=== PATIENT | male | born 1950 | race Caucasian/White ===

== ENCOUNTER → 2021-03-25 | Outpatient (CLI) | payer OTHER, MEDICARE ==
[~2021-03-25] MED LIST: FISH OIL 1,001000 M2 PO; TUMS PO; ZOCOR 10 MG TAB10 MG PO
== END ==
LOC: SJCVC 13:46
PROVIDERS: ATTEND Internal Medicine
DX: R07.89 Other chest pain (principal); I10 Essential (primary) hypertension; Z13.220 Encounter for screening for lipoid disorders; E78.5 Hyperlipidemia, unspecified; Z87.891 Personal history of nicotine dependence; Z72.89 Other problems related to lifestyle; Z79.899 Other long term (current) drug therapy

== ENCOUNTER → 2021-04-08 | Outpatient (CLI) | payer OTHER, MEDICARE ==
[~2021-04-08] MED LIST changes: +ADULT LOW DOSE81 MG PO; +FERREX 150 PLU1 EAC1 PO; +LIPITOR40 MG PO; +PACERONE 200 M200 M1 PO; +TOPROL XL25 MG PO; +VITAMIN B-12500 MC5 BUCCAL
== END ==
LOC: SJCVCIMAG 07:17
PROVIDERS: ATTEND Internal Medicine
DX: I25.9 Chronic ischemic heart disease, unspecified (principal); R94.39 Abnormal result of other cardiovascular function study; Z01.812 Encounter for preprocedural laboratory examination; E78.5 Hyperlipidemia, unspecified; I10 Essential (primary) hypertension; Z87.891 Personal history of nicotine dependence; Z72.89 Other problems related to lifestyle; Z79.82 Long term (current) use of aspirin; Z79.899 Other long term (current) drug therapy

== ENCOUNTER 2021-04-11 06:30 | Inpatient (IN) | payer OTHER, MEDICARE ==
[~2021-04-11] VITALS: Ht 177.8 cm; Wt 76.8 kg
[2021-04-11] VITALS (13 sets, daily range): BP systolic 107–155; BP diastolic 62–85
[~2021-04-11 06:30] MED LIST changes: -ADULT LOW DOSE81 MG PO; -FERREX 150 PLU1 EAC1 PO; -LIPITOR40 MG PO; -PACERONE 200 M200 M1 PO; -TOPROL XL25 MG PO; -VITAMIN B-12500 MC5 BUCCAL
[2021-04-11] MEDS ORDERED: TOPROL XL25 MG PO (07:59)
--- NOTE | 2021-04-11 18:27 | NUR ---
PT ADMITED FROM ACCOUNTING MANAGER ASSISTANT CONTROLLER. ADMISSION HX AND ASSESSMENT COMPLETED. VSS. DENIED HAVING PAIN OR DISCOMFORT. RIGHT GROIN INCISION C/D/I. NO HEMATOMA NOTED. NEW ORDERS NOTED. NO CONCERNS AT THIS TIME.
--- NOTE | 2021-04-11 21:49 | NUR ---
ASSUMED PT CARE AT 1900, ALERT AND ORIENTEDX4, DENIES PAIN, DIZZINESS OR SOB, TAKEN FOR CHEST XRAY VIA W/C, ASSESSMENTS CHARTED, VSS, SR ON TELE, MEDS GIVEN PER Antonia WILLISGROIN SITE CDI, NO HEMATOMA, NO NEEDS AT THIS TIME, WILL CONTINUE TO MONITOR PER POC
--- NOTE | 2021-04-11 23:22 | CATHLAB ---
[place] [address] INVASIVE PROCEDURE REPORT Name: VICTOR HUGO FRANCIS Room #: 211-P ADM IN M.R.#: [id number] Admission: 04/11/21 Attend Phys: Montana Kim MD, Discharge: Date of : 54 Report #: [id number] THIS REPORT FOR: cc: Shirley Mckenna MD, Cora A. MD Mancuso, Gerald M. MD [facility] ~ APPROVED REPORT Study performed: 04/11/2021 08:18:08 Patient Details Patient Status: Out-Patient Room #: The patient is a 71 year-old male Event Personnel Montana Kim Mortgage Protection Specialist, Jcarlos Bullard RN RN, Sharee Montiel RTR Scrub, Jarvis Garduno Monitor Procedures Performed Art Access - R femoral artery* Left Heart Cath w/or w/o Coronaries 6675352 [facility] Abdominal Aortography 401870 Hemostasis w/ Mynx Indication Chest pain Procedure Narrative The Right Groin^ was infiltrated with 1% Lidocaine subcutaneous anesthesia. A PINNACLE 6FR Sheath #[id number] sheath was inserted into the RFA^. Coronary angiography was performed using coronary diagnostic catheters. The right coronary system was accessed and visualized with a JR4 catheter. The left coronary system was accessed and visualized with a JL4 catheter. The left ventricle was accessed and visualized with a PIGTAIL catheter. The patient tolerated the procedure well and there were no complications associated with the procedure. Intraoperative Conscious Sedation Fentanyl mcg Versed mg Fluoro Time: 1.24 minutes Dose: DAP 2304.80 cGycm2 Contrast Type and Amount: Omnipaque 90 ml [address] [email or web address] [address] INVASIVE PROCEDURE REPORT Name: VICTOR HUGO FRANCIS Room #: 211-P [facility] IN [facility].#: [id number] Admission: 04/11/21 Attend Phys: Montana Kim, Discharge: Date of : 54 Report #: [id number] Hemodynamics The aortic pressure is 136/47 mmHg with a mean of 43 mmHg. The left ventricular pressure is 143/0 mmHg with a mean of mmHg. The left ventricular end diastolic pressure is 22 mmHg. Conclusion #1 Normal left ventricular size subtle anterior apical wall leg EF 50% range. #2 abdominal aortogram shows mild irregularity small infrarenal distal aortic aneurysm will evaluate noninvasively. Brisk flow into the iliac system. #3 distal left main high-grade disease extends into a subtotaled LAD system and also ostial circumflex trifurcation disease severe. #4 the LAD is subtotally occluded off of the left main fairly well-preserved distal vessel to the apex. #5 there is a ramus branch that also comes off of the trifurcation which appears to be involved with high-grade ostial disease. #6 small nondominant circumflex with high-grade ostial disease. #7 dominant right coronary with an eccentric mid vessel lesion of 50 to 60% small but preserved PDA system. Recommendations and plan: Continue aggressive risk factor modification. Patient is admitted due to a high-grade distal left main trifurcation disease. CV surgical consultation. He is pain-free without EKG changes. Transfer to CCU. <ELECTRONICALLY SIGNED> By: Montana Kim MD, FACC 04/11/212321 21 21 Montana Kim MD, FACC /INF
[2021-04-12 04:29] VITALS: BP 137/60
[2021-04-12 04:38] LABS: HEMATOCRIT 42.9 % (42.0-52.0); HEMOGLOBIN 14.3 gm/dL (14.0-18.0); MCH 31.1 pg (26.0-34.0); MCHC 33.4 g/dL (28.0-37.0); MCV 93.1 fL (80.0-100.0); RBC 4.61 mil/uL (4.50-6.00); RDW 12.9 % (10.5-14.5)
[2021-04-12 05:09] LABS: CALCIUM 8.5 mg/dL (8.5-10.1); CREATININE 1.1 mg/dL (0.7-1.3); POTASSIUM 4.4 mmol/L (3.5-5.1)
[2021-04-12 08:30] VITALS: BP 133/92
[2021-04-12 12:30] VITALS: BP 98/65
[2021-04-12 17:00] VITALS: BP 136/84
[2021-04-12 19:50] VITALS: BP 114/55
--- NOTE | 2021-04-13 05:07 | NUR ---
ALERT AND ORIENTED, VERY PLEASANT DENIES CP OR SOA, SR/SA WITH PACS NOTED ON TELE, ASSESSMENTS CHARTED, DENIES NEEDS THIS SHIFT, PLAN FOR CABG ON WEDNESDAY, WILL CONTINUE TO MONITOR PT PER POC
[2021-04-13 05:55] VITALS: BP 137/69
[2021-04-13 07:08] LABS: GLYCOHEMOGLOBIN (HGB A1C) 5.4 % (4.8-5.6)
[2021-04-13 07:10] VITALS: BP 123/72
[2021-04-13 11:05] VITALS: BP 136/68
--- NOTE | 2021-04-13 11:46 | NUR ---
TOOK OVER CARE FOR THIS PATIENT AT 0700. PATIENT RESTING IN BED DURING BEDSIDE SHIFT REPORT. CAME TO SEE PATIENT THIS MORNING; PLAN FOR CABG ON WEDNESDAY. CONSENT SIGNED. PATIENT DENIES ANY NEEDS AT THIS TIME. PATIENT PLEASANT AND USES CALL LIGHT APPROPRIATLEY. PATIENT WILL BE NPO AT MIDNIGHT FOR PROCEDURE. FALL PRECAUTIONS IN PLACE, PERSONAL BELONGINGS WITHIN REACH AND CALLL LIGHT WITHIN REACH. WILL CONTINUE TO MONITOR.
[2021-04-13 15:15] VITALS: BP 121/78
[2021-04-13 20:15] VITALS: BP 150/88
--- NOTE | 2021-04-14 02:41 | NUR ---
ASSUMED PT CARE AT 1900, ALERT AND ORIENTEDX4, VERY PLEASANT, SINUS ON TELE, DENIES CHEST PAIN OR SOA, SHOWERED AT HS WITH COMPLETE BED CHANGE, 2ND IV STARTED 20 GAUGE TO THE L. WRIST, VSS, CONSENT FOR BLOOD OBTAINED, PLAN FOR CABG IN THE AM, NPO FOR THE PROCEDURE, WILL CONTINUE TO MONITOR
[2021-04-14 04:45] VITALS: BP 142/75
[2021-04-14 04:50] VITALS: BP 138/78
[2021-04-14 12:59] LABS: HEMATOCRIT 27.8 % (42.0-52.0); MCH 31.7 pg (26.0-34.0); MCHC 34.3 g/dL (28.0-37.0); MCV 92.5 fL (80.0-100.0); RBC 3.01 mil/uL (4.50-6.00); WBC 16.2 thou/uL (4.0-11.0)
[2021-04-14 13:02] LABS: HEMOGLOBIN 9.6 gm/dL (14.0-18.0)
[2021-04-14 13:15] LABS: APTT 30.5 Seconds (24.5-32.8); PROTIME 18.6 Seconds (10.5-12.1)
[2021-04-14 13:17] LABS: INR 1.75
[2021-04-14 14:02] LABS: POC BE 1 mmol/L (-2.0 to +3.0); POC CA IONIZED 3.9 mg/dL (4.5-5.3); POC GLUCOSE 122 mg/dL (70-99); POC HCO3 25.5 mmol/L (22.0-26.0); POC HEMOGLOBIN 10.9 g/dL (14.0-18.0); POC POTASSIUM 6.1 mmol/L (3.5-5.1); POC SODIUM 135 mmol/L (136-145); POC pH 7.391 (7.360-7.450)
[2021-04-14 14:02] LABS: POC BE -1 mmol/L (-2.0 to +3.0); POC GLUCOSE 145 mg/dL (70-99); POC HCO3 23.8 mmol/L (22.0-26.0); POC HEMOGLOBIN 10.5 g/dL (14.0-18.0); POC POTASSIUM 6.4 mmol/L (3.5-5.1); POC SODIUM 136 mmol/L (136-145); POC pCO2 35.9 mmHg (35.0-45.0); POC pH 7.429 (7.360-7.450)
[2021-04-14 14:02] LABS: POC BE 2 mmol/L (-2.0 to +3.0); POC CA IONIZED 4.7 mg/dL (4.5-5.3); POC GLUCOSE 117 mg/dL (70-99); POC HCO3 27.6 mmol/L (22.0-26.0); POC HEMOGLOBIN 14.3 g/dL (14.0-18.0); POC POTASSIUM 5.4 mmol/L (3.5-5.1); POC SODIUM 137 mmol/L (136-145); POC pCO2 53.5 mmHg (35.0-45.0); POC pH 7.321 (7.360-7.450)
[2021-04-14 14:02] LABS: POC BE 3 mmol/L (-2.0 to +3.0); POC GLUCOSE 150 mg/dL (70-99); POC HCO3 27.6 mmol/L (22.0-26.0); POC HEMOGLOBIN 9.2 g/dL (14.0-18.0); POC POTASSIUM 4.7 mmol/L (3.5-5.1); POC SODIUM 139 mmol/L (136-145); POC pCO2 40.8 mmHg (35.0-45.0); POC pH 7.439 (7.360-7.450)
[2021-04-14 14:02] LABS: POC BE 3 mmol/L (-2.0 to +3.0); POC CA IONIZED 4.9 mg/dL (4.5-5.3); POC GLUCOSE 113 mg/dL (70-99); POC HCO3 28.2 mmol/L (22.0-26.0); POC HEMOGLOBIN 15.3 g/dL (14.0-18.0); POC POTASSIUM 4.9 mmol/L (3.5-5.1); POC SODIUM 138 mmol/L (136-145); POC pCO2 50.7 mmHg (35.0-45.0); POC pH 7.354 (7.360-7.450)
[2021-04-14 14:02] LABS: POC BE 3 mmol/L (-2.0 to +3.0); POC GLUCOSE 169 mg/dL (70-99); POC HCO3 28.1 mmol/L (22.0-26.0); POC HEMOGLOBIN 9.5 g/dL (14.0-18.0); POC POTASSIUM 5.2 mmol/L (3.5-5.1); POC SODIUM 137 mmol/L (136-145); POC pCO2 48.6 mmHg (35.0-45.0)
[2021-04-14 14:02] LABS: POC BE -3 mmol/L (-2.0 to +3.0); POC CA IONIZED 4.4 mg/dL (4.5-5.3); POC GLUCOSE 120 mg/dL (70-99); POC HCO3 22.5 mmol/L (22.0-26.0); POC HEMOGLOBIN 10.2 g/dL (14.0-18.0); POC POTASSIUM 3.9 mmol/L (3.5-5.1); POC SODIUM 142 mmol/L (136-145); POC pCO2 38.2 mmHg (35.0-45.0); POC pH 7.377 (7.360-7.450)
[2021-04-14 14:02] LABS: POC BE 1 mmol/L (-2.0 to +3.0); POC GLUCOSE 187 mg/dL (70-99); POC HCO3 25.9 mmol/L (22.0-26.0); POC HEMOGLOBIN 10.2 g/dL (14.0-18.0); POC POTASSIUM 6.4 mmol/L (3.5-5.1); POC SODIUM 136 mmol/L (136-145); POC pCO2 42.7 mmHg (35.0-45.0); POC pH 7.392 (7.360-7.450)
[2021-04-14 14:03] LABS: POC BE -1 mmol/L (-2.0 to +3.0); POC CA IONIZED 4.7 mg/dL (4.5-5.3); POC GLUCOSE 134 mg/dL (70-99); POC HEMOGLOBIN 9.2 g/dL (14.0-18.0); POC SODIUM 142 mmol/L (136-145); POC pCO2 39.8 mmHg (35.0-45.0); POC pH 7.389 (7.360-7.450)
--- NOTE | 2021-04-14 14:30 | NUR ---
Pt admitted from Surgery acc. by Anes and OR personnel. sedated. Monitor shows nsr w pac's. Dr. Nelson and calista here. pt only on Profolol at this time. All hemodynamic's wnl. heat source on and assessment completed. Will cont to monitor.
[2021-04-14 15:01] LABS: BE(vivo) -4.8 mmol/L (-2 to +3); HCO3 22.3 mmol/L (22.0-26.0); PCO2 49.6 mmHg (35.0-45.0); PO2 146.4 mmHg (80.0-100.0); sO2 98.6 % (92.0-98.0)
[2021-04-14 15:05] LABS: pH 7.271 (7.360-7.450)
--- NOTE | 2021-04-14 15:30 | NUR ---
Pt off of Profolol to see if pt will wake up. Opens eyes slightly, but not able to follow any other commands. Plan is to do Cpap soon. All parameters good. will cont to monitor.
--- NOTE | 2021-04-14 16:30 | NUR ---
RT here and pt placed on CPAP @ 30/5. VSS pt doing well. Will cont to monitor while on cpap.
--- NOTE | 2021-04-14 16:33 | EKG ---
[place] [address] [facility] [place] [address] ELECTROCARDIOGRAM REPORT Name: VICTOR HUGO FRANCIS JENN Room #: 248-P ADM IN M.R.#: [id number] Admission: 04/11/21 Attend Phys: Montana Kim MD, Discharge: Date of : 54 Report #: [id number] [facility] Test Date: 2021-04-14 Test Time: 14:42:37 Pat Name: VICTOR HUGO FRANCIS Department: Room: 248 Gender: M Snack Stewardess: ANUEL : 1950 Requested By: Guillermo Marvin Order Number: [id number] MD: Gene Smyth Measurements Intervals [place] Rate: 83 P: 47 RI: 148 QRS: -32 QRSD: 94 T: 101 QT: 378 QTc: 445 Interpretive Statements Sinus rhythm Supraventricular bigeminy Probable left atrial enlargement Left axis deviation Low voltage, precordial leads Borderline T abnormalities, anterior leads Compared to ECG 04/12/2021 07:34:07 Low QRS voltage now present T-wave abnormality now present Poor R-wave progression no longer present Electronically Signed On 04-14-2021 16:33:28 CAFETERIA DIRECTOR by Gene Smyth [email or web address] <ELECTRONICALLY SIGNED> By: Gene Smyth MD, FACC 04/14/21 1633 144 144 Gene Smyth MD, [facility] /EPI
--- NOTE | 2021-04-14 17:00 | NUR ---
Amiodarone started and pt's SBP decreased to 80. Drip stopped and Levophed started and 2 Bottles of Albumin given. DR Nelson here and informed of issue. Informed of ABG's also. Placed pt. back on the Vent. will try gain later. Cont to monitor.
[2021-04-14 17:13] LABS: BE(vivo) -7.9 mmol/L (-2 to +3); HCO3 19.9 mmol/L (22.0-26.0); PCO2 50.1 mmHg (35.0-45.0); PO2 86.9 mmHg (80.0-100.0); sO2 94.7 % (92.0-98.0)
[2021-04-14 17:14] LABS: pH 7.217 (7.360-7.450)
--- NOTE | 2021-04-14 17:41 | NUR ---
Unable to meet with patient he was in procedure CABG with planned transfer to ICU post procedure. Patient independent with adls water vessel captain. Patient resides in [facility]. casemgt following for dc planning.
[2021-04-14 18:40] LABS: HEMATOCRIT 32.8 % (42.0-52.0); MCH 31.3 pg (26.0-34.0); MCHC 33.5 g/dL (28.0-37.0); MCV 93.3 fL (80.0-100.0); RBC 3.51 mil/uL (4.50-6.00); RDW 13.3 % (10.5-14.5); WBC 23.8 thou/uL (4.0-11.0)
[2021-04-14 18:53] LABS: APTT 27.6 Seconds (24.5-32.8); INR 1.1; PROTIME 11.9 Seconds (10.5-12.1)
[2021-04-14 19:00] VITALS: BP 128/61
[2021-04-14 19:08] LABS: CALCIUM 7.7 mg/dL (8.5-10.1); CREATININE 1.2 mg/dL (0.7-1.3); MAGNESIUM 2.7 mg/dL (1.8-2.4); POTASSIUM 4.8 mmol/L (3.5-5.1)
[2021-04-14 20:20] LABS: BE(vivo) -6.7 mmol/L (-2 to +3); HCO3 18.6 mmol/L (22.0-26.0); PCO2 36.2 mmHg (35.0-45.0); sO2 97.8 % (92.0-98.0)
[2021-04-14 20:21] LABS: pH 7.328 (7.360-7.450)
[2021-04-14 20:37] VITALS: BP 111/61
[2021-04-14 21:55] LABS: BE(vivo) -5.8 mmol/L (-2 to +3); HCO3 19.4 mmol/L (22.0-26.0); PCO2 37.1 mmHg (35.0-45.0); PO2 127.6 mmHg (80.0-100.0); pH 7.337 (7.360-7.450); sO2 98.4 % (92.0-98.0)
[2021-04-14 22:00] VITALS: BP 113/61
[2021-04-15 02:47] VITALS: BP 110/62
[2021-04-15 06:19] LABS: HEMATOCRIT 30.6 % (42.0-52.0); HEMOGLOBIN 10.3 gm/dL (14.0-18.0); MCH 31.2 pg (26.0-34.0); MCHC 33.6 g/dL (28.0-37.0); RBC 3.29 mil/uL (4.50-6.00); RDW 13.2 % (10.5-14.5)
[2021-04-15 06:23] LABS: CALCIUM 7.5 mg/dL (8.5-10.1); CREATININE 1.2 mg/dL (0.7-1.3); MAGNESIUM 2.5 mg/dL (1.8-2.4); POTASSIUM 4.3 mmol/L (3.5-5.1)
--- NOTE | 2021-04-15 08:46 | NUR ---
Received order for diet education. Pt s/p CABG x 5 on 04/14. Still npo. Will address nutrition education needs once transferred out of ICU and at more appropriate time
--- NOTE | 2021-04-15 09:32 | EKG ---
[place] [address] [address] [facility] [place] [address] ELECTROCARDIOGRAM REPORT Name: VICTOR HUGO FRANCIS JENN Room #: 248-P ADM IN M.R.#: [id number] Admission: 04/11/21 Attend Phys: Montana Kim MD, Discharge: Date of : 54 Report #: [id number] [facility] Test Date: 2021-04-15 Test Time: 07:35:23 Pat Name: VICTOR HUGO FRANCIS Department: Room: 248 P Gender: M Medical Office Supervisor: ANUEL : 1950 Requested By: Guillermo Marvin Order Number: [id number] MD: Gene Smyth Measurements Intervals [place] Rate: 78 P: 46 AK: 138 QRS: -20 QRSD: 97 T: 49 QT: 370 QTc: 422 Interpretive Statements Sinus rhythm Atrial premature complexes Borderline left axis deviation Abnormal R-wave progression, early transition Compared to ECG 04/14/2021 14:42:37 No significant change Electronically Signed On 04-15-2021 9:32:27 BRISTLE MACHINE OPERATOR by Gene Smyth [email or web address] <ELECTRONICALLY SIGNED> By: Gene Smyth MD, [facility] 04/15/21931 4 4 Gene Smyht MD, [facility] /EPI
--- NOTE | 2021-04-15 10:26 | NUR ---
0745-OOB TO CHAIR (p SG CATH REMOVED) W MOD ASSIST X2. PT DID WELL W LOTS OF DIRECTION. IN EARLIER. ROLANDO PADILLA DISPATCHER CHIEF OIL, NINA MILLS DISPATCHER CHIEF OIL, ALL IN TO SEE.--VW 0930- IN TO SEE.--VW 1020- IN TO SEE. PT WORKED W PT/OT EARLIER. REMAINS COMF IN CHAIR.--VW
--- NOTE | 2021-04-15 11:04 | NUR ---
met with patient who is A/Ox4. Prior to admit patient resides at home alone. All needs on one level. His in October. He reports at dc his sister in law will be helping with driving and groceries. He is indepedent with all adls bellhop service captain. He walks 2.5 miles daily bellhop service captain. PCP Dr Mckenna. no hx of care or rehab. Casemgt following
[2021-04-15 11:48] VITALS: BP 131/73
[2021-04-15 16:05] VITALS: BP 136/62
[2021-04-15 17:52] LABS: FOLIC ACID 6.7 ng/mL (8.6-58.9)
[2021-04-16] VITALS (14 sets, daily range): BP systolic 100–126; BP diastolic 50–66
[2021-04-16 05:34] LABS: HEMATOCRIT 27.9 % (42.0-52.0); HEMOGLOBIN 9.7 gm/dL (14.0-18.0); MCHC 34.9 g/dL (28.0-37.0); MCV 91.7 fL (80.0-100.0); RBC 3.04 mil/uL (4.50-6.00); RDW 13.1 % (10.5-14.5); WBC 11.4 thou/uL (4.0-11.0)
[2021-04-16 06:10] LABS: CALCIUM 8.5 mg/dL (8.5-10.1); CREATININE 1.1 mg/dL (0.7-1.3); POTASSIUM 4.6 mmol/L (3.5-5.1)
--- NOTE | 2021-04-16 08:03 | EKG ---
[place] [address] [facility] [place] [address] ELECTROCARDIOGRAM REPORT Name: VICTOR HUGO FRANCIS Room #: 248-P ADM IN M.R.#: [id number] Admission: 04/11/21 Attend Phys: Montana Kim MD, Discharge: Date of : 54 Report #: [id number] [facility] Test Date: 2021-04-16 Test Time: 02:05:39 Pat Name: VICTOR HUGO FRANCIS Department: Room: 248 Gender: M Zoning Assistant: ELIAS : 1950 Requested By: Victor Hugo Nelson Order Number: [id number] MD: Octavio Meng Measurements Intervals [place] Rate: 168 P: [place]: QRS: -31 QRSD: 88 T: 111 QT: 283 QTc: 474 Interpretive Statements Atrial fibrillation with rapid V-rate Left axis deviation Abnormal R-wave progression, early transition Nonspecific T abnormalities, lateral leads Baseline wander in lead(s) V5 Compared to ECG 04/15/2021 07:35:23 Atrial fibrillation has replaced sinus rhythm Electronically Signed On 04-16-2021 8:03:36 RESOURCE SPECIALIST TEACHER by Octavio Meng [email or web address] <ELECTRONICALLY SIGNED> By: Octavio Meng MD, [facility] 04/16/21 0803 0205 Octavio Meng MD, [facility] /EPI
--- NOTE | 2021-04-16 16:24 | NUR ---
ALERT AND ORIENTED AND HAS DENIED PAIN, WAS IN A-FIB WITH RVR AT BEGINNING OF THE SHIFT AND ON CARDIZEM GTT. CARDIZEM DC'D BY DOCUMENT CONTROL ASSISTANT AND STARTED ON AMIO GTT. PATIENT CONVERTED TO SR AROUND 1130. UP TO THE CHAIR WITH MINIMAL ASSIST. TOLERATING DIET, A-LINE, PLEURAL CHEST TUBE, VERNON, AND PACER WIRES DOCUMENTD. AGUSTIN DC'D AND URINAL PROVIDED. SCDs WHILE IN BED. PATIENT PROGRESSING TOWARD POC GOALS.
[2021-04-17] VITALS (7 sets, daily range): BP systolic 95–134; BP diastolic 65–72
--- NOTE | 2021-04-17 10:50 | NUR ---
0730-BEATRIZ IN [place] ( [place]).--VW 0830-OOB TO CHAIR W MIN ASSIST X1 W GAIT BELT. GAIT VERY STEADY,PT ABLE TO STAND FROM SITTING POSITION W/O ASSIST.LONG DISCUSSION RE:NEED FOR INC IN I.S. (ABLE TO PULL 1L CONSISTENTLY BUT DOES TAKE EFFORT). POOR COUGH EFFORT WHEN ENC BUT HAS STRONG SPONT COUGH.SPLINTING CHEST INCISION WELL.IN GOOD SPIRITS.DENEIS ANY OP PAIN/DISCOMFORT/SOB.-- 1030-GLORIA, CV FLOOR CARE TECHNICIAN, IN TO SEE. PT AMB W P.T. DOWN & AROUND POD 2 & BACK TO CHAIR.NO SOB.--
--- NOTE | 2021-04-17 12:46 | NUR ---
Pt remains in ICU s/p CABG. He is working with therapy but needing amnio/levo due to afib. Small atypical pneumo per CTS. DC needs are uncertain pending his progress. Will continue to follow along.
[2021-04-18] VITALS (10 sets, daily range): BP systolic 90–141; BP diastolic 57–76
[2021-04-18 05:26] LABS: HEMATOCRIT 28.3 % (42.0-52.0); HEMOGLOBIN 9.6 gm/dL (14.0-18.0); MCH 31.7 pg (26.0-34.0); MCHC 34.1 g/dL (28.0-37.0); MCV 93.1 fL (80.0-100.0); RBC 3.04 mil/uL (4.50-6.00); RDW 13.2 % (10.5-14.5); WBC 10.8 thou/uL (4.0-11.0)
[2021-04-18 05:48] LABS: CALCIUM 8.2 mg/dL (8.5-10.1); POTASSIUM 4.4 mmol/L (3.5-5.1)
--- NOTE | 2021-04-18 08:04 | EKG ---
[place] [address] [facility] [place] [address] ELECTROCARDIOGRAM REPORT Name: VICTOR HUGO FRANCIS JENN Room #: 248-P ADM IN M.R.#: [id number] Admission: 04/11/21 Attend Phys: Montana Kim MD, Discharge: Date of : 54 Report #: [id number] [facility] Test Date: 2021-04-18 Test Time: 07:19:44 Pat Name: VICTOR HUGO FRANCIS Department: Room: 248 P Gender: M Crisis Intervention Counselor: FSCHWALBE : 1950 Requested By: Guillermo Marvin Order Number: [id number] MD: Octavio Meng Measurements Intervals [place] Rate: 84 P: 44 [place]: 141 QRS: -18 QRSD: 95 T: 25 QT: 387 QTc: 458 Interpretive Statements Sinus rhythm Nonspecific T wave abnormality Compared to ECG 04/16/2021 02:05:39 Atrial fibrillation no longer present Electronically Signed On 04-18-2021 8:04:02 JUTE BAG CUTTING MACHINE OPERATOR by Octavio Meng [email or web address] <ELECTRONICALLY SIGNED> By: Octavio Meng MD, [facility] 04/18/21803 8 8 Octavio Meng MD, FACC /EPI
--- NOTE | 2021-04-18 11:39 | NUR ---
Assess for length of stay. S/P CABG, eating >75% of meals and no longer wants the ensure enlive supplement so will discontinue. A1C 5.8. Wt stable and at healthy BMI 24. Low nutrition risk
--- NOTE | 2021-04-18 12:30 | NUR ---
ALERT AND ORIENTED AND VITALS STABLE, DENIES PAIN. PLEURAL CT AND PACER WIRES DC'D BY RANDY PUCKETT TODAY AND PATIENT TOLERATED WELL. UP TO CHAIR AND TOLERATING DIET W/O NAUSEA. VOIDING PER URINAL/TOILET. WALKED AROUND THE UNIT WITH P.T. PROGRESSING WELL TOWARDS POC GOALS.
[2021-04-18] MEDS ORDERED: FERREX 150 PLU1 EAC1 PO ×2 (14:58→15:31)
[2021-04-18] MEDS ORDERED: LIPITOR40 MG PO (15:30)
[2021-04-18] MEDS ORDERED: ADULT LOW DOSE81 MG PO (15:30)
[2021-04-18] MEDS ORDERED: PACERONE 200 M200 M1 PO (15:30)
--- NOTE | 2021-04-18 17:05 | NUR ---
DC ORDERS RECEIVED, DC INSTRUCTIONS AND PRESCRIPTIONS GIVEN TO PATIENT. IV DC'D AND BELONGINGS GIVEN TO PATIENT. PATIENT IS BEING DISCHARGED ACCOMPANIED BY FAMILY MEMBER
--- NOTE | 2021-04-19 11:23 | O ---
[facility] [place] [address] OPERATIVE REPORT Name: PNENYVICTOR HUGO II Room #: 248-P [facility] IN M.R.#: [id number] Admission: 04/11/21 Attend Phys: Montana Kim MD, Discharge: 04/18/21 Date of : 54 Report #: [id number] THIS REPORT FOR: cc: Shirley Mckenna MD, Cora A. MD Forman, John M. MD ~ DATE OF SERVICE: 04/14/2021 PREOPERATIVE DIAGNOSIS: Coronary artery disease. POSTOPERATIVE DIAGNOSIS: Coronary artery disease. OPERATION: Coronary artery bypass x5 including left internal mammary artery to left anterior descending artery, saphenous vein to diagonal 2, diagonal 1 and marginal arteries and saphenous vein to distal right coronary artery and endoscopic harvest right greater saphenous vein. SURGEON: Victor Hugo Nelson MD SET UP MECHANIC STAMPING MACHINES: ELVIS Eisenberg ANESTHESIA: General. INDICATION: The patient is a 71-year-old seen for Dr. Kim. The patient has high-grade distal left main and proximal LAD stenosis. Coronary anatomy is interesting where the LAD itself was truncated but there was a large second diagonal that courses towards the apex and there was a large first marginal with a relatively small marginal. Right coronary artery has relatively small distal vessels and itself has 60% stenosis in the mid portion. Left ventricular function is satisfactory. FINDINGS AND TECHNIQUE: After general anesthesia was established, saphenous vein was harvested using an endoscopic approach and prepared for use as a conduit. Exposure was obtained through median sternotomy. Left internal mammary artery was harvested from chest wall. Pericardial well was made. Cannulation sutures were placed. Heparin was given. Aorta was cannulated. Right atrium was cannulated. Cardioplegia needle was positioned in the aortic root. Retrograde cardioplegia catheter was placed in the coronary sinus. Cardiopulmonary bypass was established. Aorta was cross clamped. Antegrade and retrograde cardioplegia were given. Ice was poured in the pericardial well. The heart was stopped. During electromechanical arrest, the distal anastomoses were performed. An end-to-side anastomosis was made between the vein and the distal right coronary. Cold cardioplegia was given. A separate segment of vein was sewn in end-to-side fashion to the modest marginal artery. Cold cardioplegia was given. [facility] [address] [place] [address] OPERATIVE REPORT Name: PENNYVICTOR HUGO Room #: 248-P [facility] IN .R.#: [id number] Admission: 04/11/21 Attend Phys: Montana Kim MD, Discharge: 04/18/21 Date of : 54 Report #: [id number] The same segment of vein was sewn in end-to-side fashion to the large first diagonal artery. Cold cardioplegia was given. The same segment of vein was then sewn to the xqxn-gv-oyji fashion to the large second diagonal. Cold cardioplegia was given. Left internal mammary artery was sewn in end-to-side fashion to the short left anterior descending. This anastomosis was checked with the temperature technique. Cold cardioplegia was given. Two proximal anastomoses were performed. When these were complete, warm retrograde cardioplegia was given followed by warm continuous blood through the coronary sinus. When this infusion was complete, the crossclamp was removed. De-airing maneuvers were performed and anastomoses were inspected and found to be satisfactory. As the patient warmed, nice cardiac activity resumed, chest tubes and pacing wires were placed. A marker was placed around the proximal anastomoses. When the patient was warmed, he was weaned from cardiopulmonary bypass. Venous cannula was removed. Protamine was given, the aortic cannula was removed. Flows were measured in the bypass grafts. When hemostasis was satisfactory, chest was irrigated with antibiotic solution and closed in the usual fashion. The patient was taken to the Intensive Care Unit in good condition, having tolerated the procedure well. All counts were reported as correct. <ELECTRONICALLY SIGNED> By: Victor Hugo Nelson MD 04/19/21 1123 1633 1659 Victor Hugo Nelson MD /nt
--- NOTE | 2021-04-19 11:23 | HC ---
[facility] [place] [address] CONSULTATION Name: VICTOR HUGO FRANCIS II Room #: 248-P [facility] IN M.R.#: [id number] Admission: 04/11/21 Attend Phys: Montana Kim MD, Discharge: 04/18/21 Date of : 54 Report #: [id number] THIS REPORT FOR: cc: Shirley Mckenna MD, Cora A. MD Forman, John M. MD ~ DATE OF SERVICE: 04/11/2021 DATE OF CONSULTATION: 04/11/2021 We were asked by Dr. Kim to see the patient. HISTORY OF PRESENT ILLNESS: The patient is a 71-year-old who reports exertional angina. This occurred initially when beginning, a 50-minute walks in the morning, but seemed to resolve as the walk progressed. This also occurred when dancing. We note the patient had abnormal stress echogram with moderate to severe anterior wall hypokinesis extending to the distal septum. Cardiac catheterization today by Dr. Kim demonstrates a 70% left main and a focal 95% proximal LAD stenosis. Right coronary has a 60% ulcerated lesion in its mid portion. Left ventricular function is satisfactory with an ejection fraction of 50-55%. PAST MEDICAL HISTORY: The patient has a past history of hypertension, which is treated medically. He denies diabetes mellitus. The patient is treated for hyperlipidemia. The patient has a remote smoking history. ALLERGIES: None known. CURRENT MEDICATIONS: Aspirin, lisinopril, simvastatin, Toprol, Zocor. FAMILY HISTORY: Negative for heart disease. REVIEW OF SYSTEMS: GENERAL: No change in weight. EYES: No vision change. ENT: No hearing loss. Denies headache, sinus problems. CARDIAC: As mentioned exertional angina. No rest pain. No night pain. No shortness of breath. PULMONARY: No cough, no shortness of breath. No hemoptysis. GASTROINTESTINAL: Denies abdominal pain, nausea, vomiting, diarrhea or blood. GENITOURINARY: Denies urgency, frequency, blood. MUSCULOSKELETAL: Denies bone or joint pain. SKIN: Denies rash or infection. NEUROLOGIC: Denies motor or sensory dysfunction. HEMATOLOGIC: Denies bruisability or bleeding. [facility] [address] [place] [address] CONSULTATION Name: VICTOR HUGO FRANCIS Room #: 248-P [facility] IN [facility].#: [id number] Admission: 04/11/21 Attend Phys: Montana Kim MD, Discharge: 04/18/21 Date of : 54 Report #: [id number] PHYSICAL EXAMINATION: GENERAL: The patient is lying in bed, alert, oriented. VITAL SIGNS: Blood pressure 150/70, heart rate 80. HEENT: No scleral icterus. No arcus. NECK: No mass. I hear no bruit. CHEST: Clear to auscultation. HEART: Rhythm regular, no murmur. ABDOMEN: Soft. EXTREMITIES: No clubbing, cyanosis or edema. SKIN: No rash or infection. NEUROLOGIC: No motor or sensory loss. MUSCULOSKELETAL: No bone or joint asymmetry or deformity. VASCULAR: 2+ dorsalis pedis pulses bilaterally. No obvious saphenous vein problems. PSYCHIATRIC: Oriented and appropriate. Answers questions appropriately and is a pleasant fellow. ASSESSMENT AND PLAN: The patient has important left main coronary artery disease in addition to a high-grade LAD and right coronary stenosis, anatomy is hazardous for angioplasty and Dr. Kim asked us to organize the patient for coronary bypass. The patient wishes to stay if we can arrange for surgery Wednesday and I believe this is appropriate based on the anatomy of the lesion. It is a privilege to participate in this challenging patient's care. I should mention that I reviewed risks and details of surgery with the patient. These include but are not limited to bleeding, infection, anesthesia risks, heart and lung problems, stroke and . Options and alternatives were reviewed. Risks and benefits were discussed. The patient understands all of this and he agrees with the approach as outlined. Thank you for the consult. <ELECTRONICALLY SIGNED> By: Victor Hugo Nelson MD 04/19/21 1123 1511 0042 Victor Hugo Nelson MD /nt
[2021-04-19] MEDS ORDERED: VITAMIN B-12500 MC5 BUCCAL (23:47)
== END 2021-04-18 17:25 | disposition home or self-care (01) | DRG 233 ==
LOC: CATH 06:30 → 2N 09:23 → CATH 11:16 → ICU 04-14 14:44
PROVIDERS: Nurse Practitioner; Physician Assistant; Surgery Vascular Surgery; ADMIT Internal Medicine Cardiovascular Disease; ATTEND Internal Medicine Cardiovascular Disease
PROC: B2111ZZ Fluoroscopy of Multiple Coronary Arteries using Low Osmolar Contrast (ICD-10-PCS; principal; 2021-04-11)
PROC: B4101ZZ Fluoroscopy of Abdominal Aorta using Low Osmolar Contrast (ICD-10-PCS; principal; 2021-04-11)
PROC: 4A023N7 Measurement of Cardiac Sampling and Pressure, Left Heart, Percutaneous Approach (ICD-10-PCS; principal; 2021-04-11)
PROC: 02100Z9 Bypass Coronary Artery, One Artery from Left Internal Mammary, Open Approach (ICD-10-PCS; 2021-04-14)
PROC: 05HY33Z Insertion of Infusion Device into Upper Vein, Percutaneous Approach (ICD-10-PCS; 2021-04-14)
PROC: 5A1221Z Performance of Cardiac Output, Continuous (ICD-10-PCS; 2021-04-14)
PROC: 06BP4ZZ Excision of Right Saphenous Vein, Percutaneous Endoscopic Approach (ICD-10-PCS; 2021-04-14)
PROC: 021309W Bypass Coronary Artery, Four or More Arteries from Aorta with Autologous Venous Tissue, Open Approach (ICD-10-PCS; 2021-04-14)
DX: I25.10 Atherosclerotic heart disease of native coronary artery without angina pectoris (principal); I50.31 Acute diastolic (congestive) heart failure; I10 Essential (primary) hypertension; E78.5 Hyperlipidemia, unspecified; I65.23 Occlusion and stenosis of bilateral carotid arteries; Z60.2 Problems related to living alone; E78.00 Pure hypercholesterolemia, unspecified; J45.909 Unspecified asthma, uncomplicated; R53.81 Other malaise; I48.0 Paroxysmal atrial fibrillation; I95.89 Other hypotension; Z20.822 Contact with and (suspected) exposure to COVID-19; D64.9 Anemia, unspecified; Z79.82 Long term (current) use of aspirin; Z79.899 Other long term (current) drug therapy; Z82.49 Family history of ischemic heart disease and other diseases of the circulatory system
CPT/HCPCS: 10078; 10081; 10203; 47000; 47001; 47002; 47297; 48889; 50249; 50668; 51301; 52259; 52287; 53327; 53358; 54118; 56455; 56524; 56525; 56526; 56527; 56528; 56531; 56534; 56668; 56719; 56760; 56898; 57093; 57116; 57167; 58585; 58901; 58918; 62110; 62950; 65002; 65003; 65020; 65090; 65120; 65135; 83006

== ENCOUNTER → 2021-07-28 | Outpatient (CLI) | payer OTHER, MEDICARE ==
[~2021-07-28] MED LIST changes: +ADULT LOW DOSE81 MG PO; +FERREX 150 PLU1 EAC1 PO; +LIPITOR40 MG PO; +PACERONE 200 M200 M1 PO; +TOPROL XL25 MG PO; +VITAMIN B-12500 MC5 BUCCAL
== END ==
LOC: SJCVC 10:05
PROVIDERS: ATTEND Internal Medicine
DX: R94.31 Abnormal electrocardiogram [ECG] [EKG] (principal); I49.1 Atrial premature depolarization; I48.0 Paroxysmal atrial fibrillation; I25.10 Atherosclerotic heart disease of native coronary artery without angina pectoris; E78.5 Hyperlipidemia, unspecified; I10 Essential (primary) hypertension; Z87.891 Personal history of nicotine dependence; Z72.89 Other problems related to lifestyle; Z79.82 Long term (current) use of aspirin; Z79.899 Other long term (current) drug therapy